=== PATIENT | female | born 2000 | race Caucasian/White ===

== ENCOUNTER 2022-09-12 08:50 | Outpatient (REF) | payer OTHER, SELFPAY ==
[2022-09-12 11:28] LABS: MANUAL DIFF FLAG NO
[2022-09-12 11:37] LABS: Basophils Percent Auto 0.5 % (0-2); Eosinophils Absolute Auto 0.2 X10*3/uL (0.0-0.4); Eosinophils Percent Auto 2.9 % (0-4); Hematocrit 40.7 % (37.0-47.0); Hemoglobin 13.3 g/dl (12.0-16.0); Imm Gran Abs Auto 0.02 X10*3/uL (0.00-0.03); Imm Gran Pct Auto 0.3 % (0.0-0.4); Lymphocytes Absolute Auto 2.7 X10*3/uL (1.2-4.9); Lymphocytes Percent Auto 35.7 % (20-40); Mean Corpuscular HGB Conc 32.7 g/dl (31.0-35.0); Mean Corpuscular Hemoglobin 28.1 pg (27.0-33.0); Mean Corpuscular Volume 85.9 fL (80.0-98.0); Monocytes Absolute Auto 0.7 X10*3/uL (0.1-1.2); Monocytes Percent Auto 8.9 % (2-11); Neutrophils Absolute Auto 3.9 x10*3/uL (2.0-8.3); Neutrophils Percent Auto 51.7 % (45-73); Platelet Count 430 X10*3/uL (160-400); Red Blood Count 4.74 X10*6/uL (4.20-5.50); Red Cell Distribution Width 12.6 % (11.0-16.0); White Blood Count 7.6 X10*3/uL (4.8-10.8)
[2022-09-12 14:11] LABS: Alanine Aminotransferase 15 U/L (0-31); Anion Gap 13 (12-20); Aspartate Amino Transferase 11 U/L (5-31); Blood Urea Nitrogen 10 mg/dL (9-16); Calcium 9.8 mg/dL (8.4-10.2); Carbon Dioxide 27 mmol/L (22-29); Chloride 101 mmol/L (96-108); Cholesterol 157 mg/dL; Estimated Glomerular Filt Rate > 60; Glucose Fasting 78 mg/dL (60-99); HDL Cholesterol 57 mg/dL; LDL Cholesterol Calculated 89 mg/dl; Potassium 4.1 mmol/L (3.3-5.1); Sodium 137 mmol/L (135-145); Triglycerides 55 mg/dL; Vitamin D 25-OH Total 21.5 ng/mL (>30)
== END 2022-09-12 08:51 | disposition home or self-care (01) ==
LOC: HO.HMGCLDS 08:50
PROVIDERS: PCP Internal Medicine; Visit Provider Internal Medicine
DX: Z00.01 Encounter for general adult medical examination with abnormal findings (principal); F41.1 Generalized anxiety disorder; Z86.2 Personal history of diseases of the blood and blood-forming organs and certain disorders involving the immune mechanism; Z86.39 Personal history of other endocrine, nutritional and metabolic disease
CPT/HCPCS: 36415; 80048; 80061; 82306; 84443; 84450; 84460; 85025

== ENCOUNTER 2023-08-27 12:18 | Outpatient (AMB) | payer OTHER, SELFPAY ==
--- NOTE | 2023-08-27 12:28 | MHC.PC.OV ---
Vital Signs 08/27/23 12:29 Height 5 ft 3 in Weight 129 lb 8 oz BMI 22.9 BP 120/86 Blood Pressure Location Rt brachial Position Sitting Pulse 74 Pulse Source Pulse Oximeter Pulse Oximetry (%) 98 Oxygen Delivery Method Room Air Intake Visit Reasons: Annual PE Intake Note: pt is here for annual exam Staff Research Scientist Required: No Accompanied by: Self / Same As Patient Allergies No Known Allergies Allergy (Verified 08/27/23 13:02) Medication List - Last Reconciled 08/27/23 by Sandra Rivera MD cholecalciferol (vitamin D3) 50 mcg PO DAILY hydroxyzine pamoate 50 mg PO TID PRN lorazepam 0.5 mg PO DAILY PRN Tobacco use date assessed: 08/27/23 Dental Screening Dental Screen Date: 08/27/23 Did you have a dental visit in the last 12 months?: Yes Did you have a dental problem in the last 6 months where you did not have access to dental care?: No Was dental information given to patient?: Patient has dentist HPI Annual PE HPI Details 23-year-old Lady here today for her physical exam. She has history of generalized anxiety disorder, takes hydroxyzine as needed and reserves lorazepam only for severe acute anxiety attacks. Still has not been able to see a psychiatrist and therapist in the area. Declines pelvic exam and cervical cancer screening . She states that she has been feeling well, but complains of severe menstrual cramps has regular monthly cycle peer [facility] Medical History Urinary retention with incomplete bladder emptying Family history of thyroid disorder Dysmenorrhea, unspecified Generalized anxiety disorder History of vitamin D deficiency Hx of iron deficiency anemia Surgical History No pertinent past surgical history Family History Father HTN (hypertension) Mother Hypothyroidism Hyperlipidemia Social History Housing: House Patient Tobacco Use Status: Never used Tobacco e-Cigarette/Vaping Use: Never Used Current occupational status: employed Current occupation: [employer] Current occupational exposures/hazards: No Cognitive needs: No Hearing needs: No Vision needs: Yes Female Reproductive History Menstrual Age of Menarche: 9 Duration of menses: 6-7 days Date of last menstrual period: 08/15/23 Questionnaire PHQ-9 Over the last 2 weeks, how often have you been bothered by any of the following problems? 1. Little interest or pleasure in doing things: several days 2. Feeling down, depressed, or hopeless: not at all 3. Trouble falling or staying asleep, or sleeping too much: several days 4. Feeling tired or having little energy: several days 5. Poor appetite or overeating: several days 6. Feeling bad about yourself - or that you are a failure or have let yourself or your family down: not at all 7. Trouble concentrating on things, such as reading the newspaper or watching television: not at all 8. Moving or speaking so slowly that other people could have noticed. Or the opposite - being so fidgety or restless that you have been moving around a lot more than usual: not at all 9. Thoughts that you would be better off or of hurting yourself in some way: not at all Total score: 4 Depression Screening Interpretation: Negative Depression Screening Done: Yes 53734 - PHQ-9 Billing: Yes Source: Developed by Drs. Bashir Skinner, Caitlin Pittman, Garrett Darden and colleagues, with an educational rosendo from [employer]. Thrive Questionnaire Date Thrive assessed: 08/27/23 I am a: Patient What is your living situation today?: I have a steady place to live Within the past 12 months, did the food you bought not last and you didn't have the money to get more?: Never true Within the past 12 months, did you worry whether your food would run out before you got money to buy more?: Never true Do you have trouble paying for medicines?: No Do you have trouble getting transportation to medical appointments?: No Do you have trouble paying your heating and electricity bill?: No Do you have trouble taking care of your child, family member or friend?: No Do you have trouble with day-to-day activities such as bathing, preparing meals, shopping, managing finances, etc.?: No Are you currently unemployed and looking for a job?: No Are you interested in more education?: No Please select the resources that you would like help with: None Currently or been in a relationship where the following occur: no concerns reported and I choose not to answer this question AUDIT C Alcohol Use Questionnaire (AUDIT-C) 1. How often do you have a drink containing alcohol?: Never 3. How often do you have six or more drinks on one occasion?: Never Total Score: 0 GARRY-7 AMB Questionnaire GARRY-7 Date GARRY - 7 assessed: 08/27/23 Feeling nervous, anxious, or on edge: 1 = Several days Not being able to stop or control worryin = Several days Worrying too much about different things: 1 = Several days Trouble relaxin = Several days Being so restless that it is hard to sit still: 1 = Several days Becoming easily annoyed or irritable: 0 = Not at all Feeling afraid as if something awful might happen: 0 = Not at all Total GARRY-7 score (0-4 normal; 5-9 mild; 10-14 moderate; 15-21 severe): 5 Source: Developed by Drs. Bashri Skinner, Caitlin Pittman, Garrett Darden and colleagues, with an educational rosendo from [employer]. GARRY-7 Assessment Billing GARRY-7 Assessment Tool: GARRY-7 Assessment 89999 Review of Systems Const Denies body aches, Denies fatigue, Denies fever(s), Denies headache(s) and Denies weakness Eyes Details: Goes to [facility] eye care for eye screening, has myopia ENT Denies dizziness, Denies headache(s), Denies nasal congestion, Denies nasal discharge and Denies sore throat Card Denies chest pain, Denies lightheadedness, Denies palpitations and Denies dyspnea Resp Denies chest congestion, Denies cough, Denies dyspnea and Denies wheezing GI Denies abdominal pain, Denies change in bowel habits and Denies heartburn Denies hematuria, Denies urinary frequency, Denies dysuria and Denies urinary urgency Musc Reports no additional complaints Skin/Breast Denies breast pain, Denies breast mass, Denies lesions and Denies rash Neuro Denies dizziness, Denies headache(s) and Denies weakness Psych Reports as per HPI, Denies abnormal sleep pattern, Denies change in appetite and Denies difficulty concentrating Endo Denies fatigue, Denies polydipsia, Denies polyuria and Denies palpitations Reji/Lymph Denies easy bleeding and Denies easy bruising Aller/Immun Denies seasonal rhinorrhea and Denies wheezing Physical exam (Primary Care) Vital Signs: Last Vital Signs Pulse 74 08/27/23 12:29 BP 120/86 08/27/23 12:29 Pulse Ox 98 08/27/23 12:29 Oxygen Delivery Method Room Air 08/27/23 12:29 BMI result Body Mass Index 22.9 Tobacco/Smoking Status: Tobacco use Status Tobacco use date assessed 08/27/23 08/27/23 12:35 Patient Tobacco Use Status Never used Tobacco 08/27/23 12:28 e-Cigarette/Vaping Use Never Used 08/27/23 12:28 PHQ-9: PHQ-9 Score PHQ-9: Total score 5 08/27/23 13:03 Depression Screening Interpretation: Negative Thrive Assessment: Date of Thrive Assessment Date Thrive assessed 08/27/23 08/27/23 12:35 Currently or been in a relationship where the following occur: no concerns reported and I choose not to answer this question Const General: comfortable, no acute distress, alert and awake Nutritional Appearance: average body habitus Orientation/consciousness: patient oriented x3 HENMT Head: Yes normocephalic Ears: TM's normal bilaterally and EAC's normal General nose exam: Normal external nose present Face and sinus: Yes face symmetric Mouth: Normal oral and palatal mucosa present, oropharynx normal and moist mucous membranes Eyes General: appearance normal, both eyes and all related structures Neck Neck: Yes normal visual inspection, Yes full ROM, Yes no lymphadenopathy and Yes supple Thyroid: Thyroid normal Chest Chest palpation & inspection: normal inspection of the chest Breast/axilla palpation: normal palpation of the breasts Resp Effort & Inspection: normal respiratory effort and able to speak in complete sentences Auscultation: clear to auscultation bilaterally Cardio Rate: regular rate Rhythm: regular rhythm Heart sounds: S1 normal heart sound present and S2 normal heart sound present GI Palpation (GI): Soft to palpation, nontender, no guarding and no masses Auscultation: normal bowel sounds General: Yes no CVA tenderness and Yes deferred (pt declined exam) Back/Spine/Pelvis Back: no CVA tenderness and No back tenderness Skin General skin exam: no rashes or lesions noted Neuro General: patient oriented x3, gait normal, moves all extremities, Normal light touch and pain sensation, no focal motor deficits and CN's II-XI intact bilaterally Gait exam (Neuro): Normal gait present Extrem General: Yes full ROM, Yes no joint enlargement, Yes no clubbing, cyanosis or edema, Yes no calf tenderness and Yes normal gait Psych Appearance: grossly normal and well kempt Mental Status: mental status grossly normal Speech and movement: Normal speech and movement present Affect: Anxious affect present Attitude: cooperative Thought process: Normal thought process present Assessment and Plan Assessment & Plan (1) Annual visit for general adult medical examination with abnormal findings: Code(s): Z00.01 - Encounter for general adult medical examination with abnormal findings Plan: Will check appropriate labs. Recommended dental visit every 6 months and regular eye exams, at least every 2 years currently up-to-date. Advised to do regular breast exams to check for any mass. Declined pelvic exam and cervical cancer screening. Start screening mammogram at age 38. She is up-to-date with her Tdap, has had COVID vaccinations and flu shots in the past but does not want to get further vaccines. (2) Generalized anxiety disorder: Code(s): F41.1 - Generalized anxiety disorder Plan: Still waiting for appointment to see therapist and psychiatrist. Meantime refill sent for her hydroxyzine and lorazepam to take as directed (3) History of vitamin D deficiency: Code(s): Z86.39 - Personal history of other endocrine, nutritional and metabolic disease Plan: Will repeat another vitamin-D level (4) Dysmenorrhea, unspecified: Code(s): N94.6 - Dysmenorrhea, unspecified Plan: Referred for pelvic ultrasound, but patient refusing transvaginal exam (5) Hx of iron deficiency anemia: Code(s): Z86.2 - Personal history of diseases of the blood and blood-forming organs and certain disorders involving the immune mechanism Plan: CBC ordered Orders: Orders Complete Blood Count Auto Diff 08/27/23 Z86.39 - Personal history of other endocrine, nutritional and metabolic disease, Z86.2 - Personal history of diseases of the blood and blood-forming organs and certain disorders involving the immune mechanism, F41.1 - Generalized anxiety disorder, Z00.01 - Encounter for general adult medical examination with abnormal findings Vitamin D 25-OH Total 08/27/23 Z86.39 - Personal history of other endocrine, nutritional and metabolic disease, Z86.2 - Personal history of diseases of the blood and blood-forming organs and certain disorders involving the immune mechanism, F41.1 - Generalized anxiety disorder, Z00.01 - Encounter for general adult medical examination with abnormal findings Glucose Fasting 08/27/23 Z86.39 - Personal history of other endocrine, nutritional and metabolic disease, Z86.2 - Personal history of diseases of the blood and blood-forming organs and certain disorders involving the immune mechanism, F41.1 - Generalized anxiety disorder, Z00.01 - Encounter for general adult medical examination with abnormal findings TSH reflex Free T4 08/27/23 Z83.49 - Family history of other endocrine, nutritional and metabolic diseases Medications: Refilled lorazepam 0.5 mg PO DAILY PRN 30 tabs 0RF severe anxiety/panic attacks F41.1 - Generalized anxiety disorder hydroxyzine pamoate 50 mg PO TID PRN 90 caps 0RF ACUTE ANXIETY ATTACKS ONLY F41.1 - Generalized anxiety disorder Review Declined Pap Smear: 08/27/23 Flu Vaccine not done: patient reason Coding Level of Care Code Est Pt Prev Care 18-39y(98182) Diagnoses Annual visit for general adult medical examination with abnormal findings Z00.01 Generalized anxiety disorder F41.1 History of vitamin D deficiency Z86.39 Dysmenorrhea, unspecified N94.6 Hx of iron deficiency anemia Z86.2 Additional Codes GARRY-7 Assessment Billing - GARRY-7 Assessment Tool: GARRY-7 Assessment [id number] ([id number])
[2023-08-27 12:29] VITALS: BP 120/86; PULSE 74; O2SAT 98; BMI 22.9
== END 2023-08-27 13:44 | disposition home or self-care (01) ==
PROVIDERS: Visit Provider Internal Medicine
DX: Z00.00 Encounter for general adult medical examination without abnormal findings (principal); F41.1 Generalized anxiety disorder; Z86.39 Personal history of other endocrine, nutritional and metabolic disease; N94.6 Dysmenorrhea, unspecified; Z86.2 Personal history of diseases of the blood and blood-forming organs and certain disorders involving the immune mechanism
CPT/HCPCS: 99395

== ENCOUNTER 2023-10-16 08:10 | Outpatient (REF) | payer OTHER, SELFPAY ==
[2023-10-16 11:48] LABS: MANUAL DIFF FLAG NO
[2023-10-16 11:55] LABS: Basophils Percent Auto 0.3 % (0-2); Eosinophils Absolute Auto 0.2 X10*3/uL (0.0-0.4); Eosinophils Percent Auto 3.5 % (0-4); Hematocrit 41.4 % (37.0-47.0); Hemoglobin 13.5 g/dl (12.0-16.0); Imm Gran Abs Auto 0.01 X10*3/uL (0.00-0.03); Imm Gran Pct Auto 0.2 % (0.0-0.4); Lymphocytes Absolute Auto 2.4 X10*3/uL (1.2-4.9); Lymphocytes Percent Auto 41.2 % (20-40); Mean Corpuscular HGB Conc 32.6 g/dl (31.0-35.0); Mean Corpuscular Hemoglobin 28.1 pg (27.0-33.0); Mean Corpuscular Volume 86.3 fL (80.0-98.0); Mean Platelet Volume 11.2 fL (9.4-12.3); Monocytes Absolute Auto 0.5 X10*3/uL (0.1-1.2); Monocytes Percent Auto 9.2 % (2-11); Neutrophils Absolute Auto 2.6 x10*3/uL (2.0-8.3); Neutrophils Percent Auto 45.6 % (45-73); Platelet Count 362 X10*3/uL (160-400); Red Cell Distribution Width 12.9 % (11.0-16.0); White Blood Count 5.8 X10*3/uL (4.8-10.8)
[2023-10-16 12:11] LABS: Glucose Fasting 75 mg/dL (60-99)
[2023-10-16 12:41] LABS: TSH reflex Free T4 1.39 uIU/mL (0.32-4.0); Vitamin D 25-OH Total 51.9 ng/mL (>30)
== END 2023-10-16 08:11 | disposition home or self-care (01) ==
LOC: HO.HMGCLDS 08:10
PROVIDERS: PCP Internal Medicine; Visit Provider Internal Medicine
DX: Z00.01 Encounter for general adult medical examination with abnormal findings (principal); F41.1 Generalized anxiety disorder; Z86.39 Personal history of other endocrine, nutritional and metabolic disease; Z86.2 Personal history of diseases of the blood and blood-forming organs and certain disorders involving the immune mechanism; Z83.49 Family history of other endocrine, nutritional and metabolic diseases
CPT/HCPCS: 36415; 82306; 82947; 84443; 85025

== ENCOUNTER 2023-10-23 12:44 | Outpatient (REF) | payer OTHER, SELFPAY ==
--- NOTE | ~2023-10-23 | US_ITS ---
EXAMINATION: US PELVIS CLINICAL INFORMATION: Dysmenorrhea. COMPARISON: None available. TECHNIQUE: Transabdominal imaging of pelvis is performed. Patient refused transvaginal ultrasound. FINDINGS: Uterus: The uterus is anteverted and measures 9.2 x 5.0 x 3 5.3 cm. The double wall endometrial thickness is 0.92 cm. The uterus is smooth in contour and has normal myometrial echogenicity. No visible fibroid. Adnexa: There are bilateral adnexal cystic and solid mass is unable to differentiate from the ovaries. As per the patient signifies or [address] abdomen pelvis which was not performed at this institution. There is no small to moderate free fluid in the cul-de-sac. US/US pelvic complete IMPRESSION: Unremarkable uterus. Bilateral adnexal cystic and solid masses. Unable to separate ovary on transabdominal ultrasound. Transvaginal scan was reviewed. If patient has clinical pain and bleeding further evaluation can be performed with MRI with and without contrast. Small to moderate amount of free fluid in the pelvis.
== END 2023-10-23 12:45 | disposition home or self-care (01) ==
LOC: HO.HMGCX 12:44
PROVIDERS: PCP Internal Medicine; Visit Provider Internal Medicine
DX: N94.6 Dysmenorrhea, unspecified (principal)
CPT/HCPCS: 76856

== ENCOUNTER 2024-02-04 09:11 | Outpatient (AMB) | payer OTHER, SELFPAY ==
[2024-02-04 09:23] VITALS: BP 112/70; PULSE 88; TEMP 36.6; O2SAT 99
--- NOTE | 2024-02-04 09:23 | AM.OFFWIN_ITS ---
Intake Vital Signs 02/04/24 09:23 Height 5 ft 3 in BP 112/70 Blood Pressure Location Rt brachial Position Sitting Pulse 88 Pulse Source Pulse Oximeter Temp 97.8 F Temp Source Temporal Artery Scan Pulse Oximetry (%) 99 Intake Visit Reasons: EST/right side sharp hip pain (lobby) Intake Note: pt is here for right side sharp pain denies injury Patient Tobacco Use Status: Never used Tobacco Allergies No Known Allergies Allergy (Verified 02/04/24 09:57) Medication List - Last Reconciled 02/04/24 by Jose Gold MD cholecalciferol (vitamin D3) 50 mcg PO DAILY hydroxyzine pamoate 50 mg PO TID PRN lorazepam 0.5 mg PO DAILY PRN Do you need a note to return to daycare/school/sports/work: Yes HPI EST/right side sharp hip pain (lobby) HPI Details 23 yr old female presents to the office for a sick visit. Pt is reporting sharp pain over right hip for the past 7 days. Pain is present all the time, unrelated to urination, bowel movements or eating. Radiating to the base of the right leg. Able to walk with no difficulty. No change in gait. [facility], [facility] Medical History Adnexal mass Urinary retention with incomplete bladder emptying Family history of thyroid disorder Dysmenorrhea, unspecified Generalized anxiety disorder History of vitamin D deficiency Hx of iron deficiency anemia Surgical History No pertinent past surgical history Family History Father HTN (hypertension) Mother Hypothyroidism Hyperlipidemia Social History Housing: House Patient Tobacco Use Status: Never used Tobacco e-Cigarette/Vaping Use: Never Used Current occupational status: employed Current occupation: [employer] Current occupational exposures/hazards: No Cognitive needs: No Hearing needs: No Vision needs: Yes Female Reproductive History Menstrual Age of Menarche: 9 Physical Exam Vital Signs: Last Vital Signs Temp 97.8 F 02/04/24 09:23 Pulse 88 02/04/24 09:23 BP 112/70 05/13/24 09:23 Pulse Ox 99 02/04/24 09:23 Const General: cooperative and healthy appearing Nutritional Appearance: well nourished Orientation/consciousness: patient oriented x3 Limitations: no limitations HEENT Head: Yes normal to inspection Eyes General: appearance normal, both eyes and all related structures Neck Neck: Yes normal visual inspection Chest Chest palpation & inspection: normal palpation of entire chest wall Resp Effort & Inspection: normal respiratory effort GI Other: Examination done with a female director medical affairs in the room. Abd: Tenderness over the anterior iliac spine. ROM: Right hip: Full flexion, extention, IR and ER. Inspection: Yes normal to inspection Neuro General: patient oriented x3 Assessment & Plan Assessment & Plan (1) Hip pain: Code(s): M25.559 - Pain in unspecified hip Plan: X ray images personally revd by me. Pt has an MRI of the abdomen scheduled later this week for work up of an ovarian lesion. Encouraged her to keep the appt. X- ray images were unremarkable. Orders: Orders Complete Blood Count no Diff Today M25.559 - Pain in unspecified hip C Reactive Protein Today M25.559 - Pain in unspecified hip Basic Metabolic Panel Today M25.559 - Pain in unspecified hip Erythrocyte Sedimentation Rate Today M25.559 - Pain in unspecified hip Liver Panel Today M25.559 - Pain in unspecified hip Thyroid Stimulating Hormone Today M25.559 - Pain in unspecified hip XR hip RT w PEL1V Today M25.551 - Pain in right hip Coding Level of Care Code Est Pt Level 4 (50631) Diagnoses Hip pain M25.559
== END 2024-02-04 10:23 | disposition home or self-care (01) ==
PROVIDERS: PCP Internal Medicine; Visit Provider Internal Medicine
DX: M25.559 Pain in unspecified hip (principal)
CPT/HCPCS: 99214

== ENCOUNTER 2024-02-04 09:54 | Outpatient (REF) | payer OTHER, SELFPAY ==
--- NOTE | ~2024-02-04 | XR_ITS ---
EXAMINATION: XR HIP, RIGHT CLINICAL INFORMATION: Right hip pain. COMPARISON: None available. TECHNIQUE: Two views of the right hip. FINDINGS: Alignment is anatomic. Hip joint space is maintained. No displaced fracture. Soft tissues are unremarkable. The sacrum is partially obscured by overlying bowel contents. Sacroiliac joints and pubic symphysis are intact. The hip joints appear symmetric on the AP view. XR/XR hip RT w PEL1V IMPRESSION: No acute abnormality.
== END 2024-02-04 09:55 | disposition home or self-care (01) ==
LOC: HO.HMGCX 09:54
PROVIDERS: PCP Internal Medicine; Visit Provider Internal Medicine
DX: M25.551 Pain in right hip (principal)
CPT/HCPCS: 73502

== ENCOUNTER 2024-08-28 13:55 | Outpatient (AMB) | payer OTHER, SELFPAY ==
--- NOTE | 2024-08-28 14:31 | MHC.PC.OV ---
Vital Signs 08/28/24 14:39 Height 5 ft 3 in Weight 121 lb BMI 21.4 BP 114/70 Blood Pressure Location Rt brachial Position Sitting Pulse 86 Pulse Source Pulse Oximeter Pulse Oximetry (%) 100 Oxygen Delivery Method Room Air Intake Visit Reasons: Annual PE Intake Note: Pt is here today for her PE Allergies No Known Allergies Allergy (Verified 08/31/24 01:42) Medication List - Last Reconciled 08/31/24 by Sandra Rivera MD cholecalciferol (vitamin D3) 50 mcg PO DAILY hydroxyzine HCl 50 mg PO DAILY PRN lorazepam 0.5 mg PO DAILY PRN Tobacco use date assessed: 08/28/24 Dental Screening Dental Screen Date: 08/28/24 Did you have a dental visit in the last 12 months?: Yes Did you have a dental problem in the last 6 months where you did not have access to dental care?: No Was dental information given to patient?: Patient has dentist HPI Annual PE HPI Details The patient is a 24-year-old female, heretoday for her physical examination. She has been diagnosed with Stage IV Endometriosis, which was confirmed following a pelvic ultrasound and MRI and laparotomy, done at [facility]. She underwent surgery on June 03 at [facility], but not all endometrial tissue could be removed. Subsequent hormone therapy with Lupron has resulted in severe side effects, including nerve-related symptoms, loss of strength, dizziness, and weakness. Prior to starting Lupron, the patient experienced predictable severe pain associated with her menstrual cycle, but post-treatment, the pain has become inconsistent and unpredictable. She reports a significant emotional and physical toll, with symptoms exceeding expectations from the initial treatment discussion. Despite prior intervention, she states that her symptoms persist, affecting her quality of life and daily functioning. Works at [employer], with concerns about job security and sick time. [facility] Medical History (Updated 08/28/24 @ 15:23 by Sandra Rivera MD) Endometriosis determined by laparoscopy Adnexal mass Urinary retention with incomplete bladder emptying Family history of thyroid disorder Dysmenorrhea, unspecified Generalized anxiety disorder History of vitamin D deficiency Hx of iron deficiency anemia Surgical History (Updated 08/31/24 @ 01:55 by Sandra Rivera MD) Hx of laparoscopy Family History Father HTN (hypertension) Mother Hypothyroidism Hyperlipidemia Social History Housing: House Patient Tobacco Use Status: Never used Tobacco e-Cigarette/Vaping Use: Never Used Current occupational status: employed Current occupation: [employer] Current occupational exposures/hazards: No Cognitive needs: No Hearing needs: No Vision needs: Yes Female Reproductive History Menstrual Age of Menarche: 9 Date of last pap smear: 06/03/24 (Done by [facility] urogynecology with Dr. Melinda Pope) Questionnaire PHQ-9 Over the last 2 weeks, how often have you been bothered by any of the following problems? 1. Little interest or pleasure in doing things: not at all 2. Feeling down, depressed, or hopeless: not at all 3. Trouble falling or staying asleep, or sleeping too much: not at all 4. Feeling tired or having little energy: several days 5. Poor appetite or overeating: not at all 6. Feeling bad about yourself - or that you are a failure or have let yourself or your family down: not at all 7. Trouble concentrating on things, such as reading the newspaper or watching television: not at all 8. Moving or speaking so slowly that other people could have noticed. Or the opposite - being so fidgety or restless that you have been moving around a lot more than usual: not at all 9. Thoughts that you would be better off or of hurting yourself in some way: not at all Total score: 1 Depression Screening Interpretation: Negative Depression Screening Done: Yes 95544 - PHQ-9 Billing: Yes Source: Developed by Drs. Bashir Skinner, Caitlin Pittman, Garrett Darden and colleagues, with an educational rosendo from [employer]. Thrive Questionnaire Date Thrive assessed: 08/28/24 I am a: Patient What is your living situation today?: I have a steady place to live Within the past 12 months, did the food you bought not last and you didn't have the money to get more?: Never true Within the past 12 months, did you worry whether your food would run out before you got money to buy more?: Never true Do you have trouble paying for medicines?: No Do you have trouble getting transportation to medical appointments?: No Do you have trouble paying your heating and electricity bill?: No Do you have trouble taking care of your child, family member or friend?: No Do you have trouble with day-to-day activities such as bathing, preparing meals, shopping, managing finances, etc.?: No Are you currently unemployed and looking for a job?: No Are you interested in more education?: No Please select the resources that you would like help with: None Currently or been in a relationship where the following occur: No concerns reported THRIVE Score: 0 AUDIT C Alcohol Use Questionnaire (AUDIT-C) 1. How often do you have a drink containing alcohol?: Never 3. How often do you have six or more drinks on one occasion?: Never Total Score: 0 GARRY-7 AMB Questionnaire GARRY-7 Date GARRY - 7 assessed: 08/28/24 Feeling nervous, anxious, or on edge: 0 = Not at all Not being able to stop or control worryin = Not at all Worrying too much about different things: 0 = Not at all Trouble relaxin = Not at all Being so restless that it is hard to sit still: 0 = Not at all Becoming easily annoyed or irritable: 0 = Not at all Feeling afraid as if something awful might happen: 0 = Not at all Total GARRY-7 score (0-4 normal; 5-9 mild; 10-14 moderate; 15-21 severe): 0 Source: Developed by Drs. Bashir Skinner, Caitlin Pittman, Garrett Darden and colleagues, with an educational rosendo from [employer]. GARRY-7 Assessment Billing GARRY-7 Assessment Tool: GARRY-7 Assessment 28295 Review of Systems Const Denies fatigue, Denies fever(s), Denies headache(s) and Denies weakness Eyes Details: Goes to [facility] for her yearly eye exams ENT Details: dental prophylaxis every 6 months Denies dizziness, Denies headache(s), Denies nasal congestion, Denies nasal discharge and Denies sore throat Card Denies chest pain, Denies lightheadedness, Denies palpitations and Denies dyspnea Resp Denies chest congestion, Denies cough, Denies dyspnea and Denies wheezing GI Denies change in bowel habits and Denies heartburn Reports abnormal menses, Denies hematuria, Denies urinary frequency, Denies dysuria and Denies urinary urgency Musc Reports no additional complaints Skin/Breast Denies breast pain, Denies breast mass, Denies lesions and Denies rash Neuro Denies dizziness, Denies headache(s) and Denies weakness Psych Denies abnormal sleep pattern, Denies change in appetite and Denies difficulty concentrating Endo Denies fatigue, Denies polydipsia, Denies polyuria and Denies palpitations Reji/Lymph Denies easy bleeding and Denies easy bruising Aller/Immun Denies seasonal rhinorrhea and Denies wheezing Physical exam (Primary Care) Vital Signs: Last Vital Signs Pulse 86 08/28/24 14:39 BP 114/70 08/28/24 14:39 Pulse Ox 100 08/28/24 14:39 Oxygen Delivery Method Room Air 08/28/24 14:39 BMI result Body Mass Index 21.4 Tobacco/Smoking Status: Tobacco use Status Tobacco use date assessed 08/28/24 08/28/24 14:33 Patient Tobacco Use Status Never used Tobacco 08/28/24 14:31 e-Cigarette/Vaping Use Never Used 08/28/24 14:31 PHQ-9: PHQ-9 Score PHQ-9: Total score 1 08/28/24 15:25 Depression Screening Interpretation: Negative Thrive Assessment: Date of Thrive Assessment Date Thrive assessed 08/28/24 08/28/24 14:31 Currently or been in a relationship where the following occur: No concerns reported Advance Care Planning discussion: Completed/Scanned Date of discussion: 08/28/24 Who was present: Patient and mother Forms completed: Health Care Proxy Time spent: 16-45 minutes Actual minutes spent: 2 Const Other: Accompanied by mother on this visit General: comfortable, no acute distress, alert and awake Nutritional Appearance: average body habitus Orientation/consciousness: patient oriented x3 HENMT Head: Yes normocephalic Ears: TM's normal bilaterally and EAC's normal General nose exam: Normal external nose present Face and sinus: Yes face symmetric Mouth: Normal oral and palatal mucosa present, oropharynx normal and moist mucous membranes Eyes General: appearance normal, both eyes and all related structures Neck Neck: Yes normal visual inspection, Yes full ROM, Yes no lymphadenopathy and Yes supple Thyroid: Thyroid normal Chest Other: Patient declined exam states that she was already checked by her OB Resp Effort & Inspection: normal respiratory effort and able to speak in complete sentences Auscultation: clear to auscultation bilaterally Cardio Rate: regular rate Rhythm: regular rhythm Heart sounds: S1 normal heart sound present and S2 normal heart sound present GI Palpation (GI): Soft to palpation, Tenderness to palpation present (GI) (Diffuse tenderness), no guarding and no masses Auscultation: normal bowel sounds General: Yes no CVA tenderness and Yes deferred (pt declined exam) Back/Spine/Pelvis Back: no CVA tenderness and No back tenderness Skin General skin exam: no rashes or lesions noted Neuro General: patient oriented x3, gait normal, moves all extremities, Normal light touch and pain sensation, no focal motor deficits and CN's II-XI intact bilaterally Gait exam (Neuro): Normal gait present Extrem General: Yes full ROM, Yes no joint enlargement, Yes no clubbing, cyanosis or edema, Yes no calf tenderness and Yes normal gait Psych Appearance: grossly normal and well kempt Mental Status: mental status grossly normal Speech and movement: Normal speech and movement present Attitude: cooperative Thought process: Normal thought process present Coding Level of Care Code Est Pt Prev Care 18-39y(78268) Diagnoses Annual visit for general adult medical examination with abnormal findings Z00. Endometriosis determined by laparoscopy N80.9 Hx of iron deficiency anemia Z86.2 History of vitamin D deficiency Z86.39 Generalized anxiety disorder F41.1 Encounter for counseling regarding advance directives Z71.89 Additional Codes PHQ-9 - 67328 - PHQ-9 Billing: Yes ([id number]) GARRY-7 Assessment Billing - GARRY-7 Assessment Tool: GARRY-7 Assessment 40274 ([id number]) Vital Signs *Quality* - Advance Care Planning discussion: Completed/Scanned ([id number]) Vital Signs *Quality* - Time spent: 16-45 minutes ([id number]) Assessment & Plan Assessment & Plan (1) Annual visit for general adult medical examination with abnormal findings: Code(s): Z00.01 - Encounter for general adult medical examination with abnormal findings (2) Endometriosis determined by laparoscopy: Code(s): N80.9 - Endometriosis, unspecified Category: Medical (3) Hx of iron deficiency anemia: Code(s): Z86.2 - Personal history of diseases of the blood and blood-forming organs and certain disorders involving the immune mechanism Category: Medical (4) History of vitamin D deficiency: Code(s): Z86.39 - Personal history of other endocrine, nutritional and metabolic disease Category: Medical (5) Generalized anxiety disorder: Code(s): F41.1 - Generalized anxiety disorder Category: Medical (6) Encounter for counseling regarding advance directives: Code(s): Z71.89 - Other specified counseling Plan: Initiated the conversation about Advanced Directives. Advanced Directives help patients prepare for current and future decisions about their medical treatment and place of care. Discussed with patient that it is a process where a patients current condition and prognosis are reviewed, their wishes for information regarding their illness are elicited, and likely medical dilemmas are presented and options discussed. Healthcare proxy form completed today. The form can be amended as needed, reviewed yearly and make changes as needed Plan - Continued monitoring and management of Stage IV Endometriosis with hormonal therapy discussion. and consideration of alternatives to Lupron due to severe side effects will be discussed with her OBGYN at [facility]. -has hx of Anemia, to be evaluated with upcoming blood work; pending results to guide further management. - Follow-up scheduled with LOOPING MACHINE OPERATOR for comprehensive management of endometriosis symptoms and adjustment of hormonal treatment. - Discuss potential use of higher content control with LOOPING MACHINE OPERATOR as an alternative management option. - Safety measures at work and consideration for FMLA to manage intermittent medical leave due to chronic pain. -Up-to-date with her cervical cancer screening, done 06/03/2024 at [facility] O[facility] - up-to-date with her routine eye exam, has had COVID vaccines in the past as well as flu shots but does not want to get any COVID booster or flu vaccine on today's visit, up-to-date with her Tdap - has been having frequent anxiety attacks brought about by her current medical issues, prescription sent for hydroxyzine, to take at as needed for acute anxiety attacks mainly at night, and also given a prescription for lorazepam to take as needed only for severe anxiety attacks not controlled with hydroxyzine. patient counseled that these medications are habit-forming and not to be taken on a regular basis. Declines referral for counseling Patient was informed and verbally consented to the use of an ambient scribe for clinic note documentation during this visit. Orders: Orders Complete Blood Count Auto Diff 08/28/24 F41.1 - Generalized anxiety disorder, N80.9 - Endometriosis, unspecified, Z00.01 - Encounter for general adult medical examination with abnormal findings, Z71.89 - Other specified counseling, Z86.2 - Personal history of diseases of the blood and blood-forming organs and certain disorders involving the immune mechanism, Z86.39 - Personal history of other endocrine, nutritional and metabolic disease Basic Metabolic Panel Fasting 08/28/24 F41.1 - Generalized anxiety disorder, N80.9 - Endometriosis, unspecified, Z00.01 - Encounter for general adult medical examination with abnormal findings, Z71.89 - Other specified counseling, Z86.2 - Personal history of diseases of the blood and blood-forming organs and certain disorders involving the immune mechanism, Z86.39 - Personal history of other endocrine, nutritional and metabolic disease Lipid Panel 08/28/24 F41.1 - Generalized anxiety disorder, N80.9 - Endometriosis, unspecified, Z00.01 - Encounter for general adult medical examination with abnormal findings, Z71.89 - Other specified counseling, Z86.2 - Personal history of diseases of the blood and blood-forming organs and certain disorders involving the immune mechanism, Z86.39 - Personal history of other endocrine, nutritional and metabolic disease TSH reflex Free T4 08/28/24 F41.1 - Generalized anxiety disorder, N80.9 - Endometriosis, unspecified, Z00.01 - Encounter for general adult medical examination with abnormal findings, Z71.89 - Other specified counseling, Z86.2 - Personal history of diseases of the blood and blood-forming organs and certain disorders involving the immune mechanism, Z86.39 - Personal history of other endocrine, nutritional and metabolic disease Vitamin D 25-OH Total 08/28/24 F41.1 - Generalized anxiety disorder, N80.9 - Endometriosis, unspecified, Z00.01 - Encounter for general adult medical examination with abnormal findings, Z71.89 - Other specified counseling, Z86.2 - Personal history of diseases of the blood and blood-forming organs and certain disorders involving the immune mechanism, Z86.39 - Personal history of other endocrine, nutritional and metabolic disease Medications: New hydroxyzine HCl 50 mg PO DAILY PRN 30 tabs 3RF anxiety Refilled lorazepam 0.5 mg PO DAILY PRN 30 tabs 0RF severe anxiety/panic attacks F41.1 - Generalized anxiety disorder Discontinued hydroxyzine pamoate Discontinued Reason: Duplicate 50 mg PO TID PRN 90 caps 0RF ACUTE ANXIETY ATTACKS ONLY F41.1 - Generalized anxiety disorder
[2024-08-28 14:39] VITALS: BP 114/70; PULSE 86; O2SAT 100; BMI 21.4
--- OUTSIDE RECORDS SUMMARY | 2024-09-03 02:57 | XMS_ITS | Continuity of Care Document ---
Author Organization [facility] y [address], [address] [place] [address]- Care Team Providers Care Fisheries Technical Officer Name Role Phone Nicole DIXON, Sandra Torrez Primary Care Physician Encounter [facility] [id number] Date(s): 07/24/24 - 08/23/[address] [place], [place] [address] Attending Physician: Lianne Snowden Admitting Physician: Lianne Snowden Referring Physician: Admtr ArCesar Encounter Type: Triage Allergies, Adverse Reactions, Alerts No Known Allergies Immunizations Given and Recorded Vaccine Date Status Refusal Reason influenza virus vaccine, inactivated 08/11/22 Stephen rded influenza virus vaccine, inactivated 07/17/21 Stephen rded influenza virus vaccine, inactivated 07/23/20 Stephen rded influenza virus vaccine, inactivated 07/05/19 Stephen rded influenza virus vaccine, inactivated 07/27/18 Stephen rded influenza virus vaccine, inactivated 07/13/17 Stephen rded SARS-CoV-2 (COVID-19) mRNA BNT-162b2 vac 10/19/21 Recorded SARS-CoV-2 (COVID-19) mRNA BNT-162b2 vac 02/05/21 Recorded SARS-CoV-2 (COVID-19) mRNA BNT-162b2 vac 01/13/21 Recorded tetanus/diphtheria/pertussis, acel(Tdap) 10/15/20 Recorded Medications acetaminophen 500 mg oral tablet 2 tablet = 1,000 mg, By Mouth, Every 6 hours, PRN as needed for pain or fever, Maintenance, 05/30/24 3:02:00 PM EDT Start Date: 05/30/24 Status: Ordered Repeat number: 1 asthma clear (natural asthma relief) asthma clear (natural asthma relief), 2 capsules, By Mouth, Daily, Refills 0, Maintenance, 10/23/13 3:28:01 PM EST, Compound Start Date: 10/23/13 Status: Ordered Repeat number: 1 gabapentin 100 mg oral capsule 200 mg, 2, capsule, By Mouth, 3 times a day, # 180 capsule, Refills 3, Tot. Refills 3, Maintenance,07/15/24 12:53:00 PM EDT, Route to Pharmacy Electronically, [id number], Partial fill upon patient request if the prescription is for a schedule II opioid drug., 163, cm, 06/20/24 14:46:00 EDT, Height, 57.6, kg, 07/04/24 10:53:00 EDT, Dry Weight Start Date: 07/15/24 Status: Ordered Quantity: 180.0 Unit: capsule Repeat number: 4 leuprolide 11.25 mg/3 months intramuscular kit = 11.25 mg, Intramuscular, Every 3 months, # 1 kit, 3 Refills, Maintenance, 07/30/24 9:10:00 AM EST,[facility], Partial fill upon patient request if the prescription is for a schedule II opioid drug., 163, cm, 07/24/24 9:39:00 EDT, Height, 56.9, kg, 07/28/24 8:45:00 EST, Dry Weight Start Date: 07/30/24 Status: Ordered Quantity: 1.0 Unit: kit Repeat number: 4 lidocaine 1.8% topical film 1 patch, Topically, Daily, leave on up to 12 hours, # 30 each, 0 Refills, Maintenance, 06/20/24 2:42:00 PM EDT, Film, [id number], Partial fill upon patient request if the prescription is for a schedule II opioid drug., 1 patch Topically Daily,x14 days,Instr:leave on up to 12 hours,163, cm, 06/20/24 10:46:00 EDT, Height, 56, kg, 06/20/24 10:46:00 EDT, Dry Weight Start Date: 06/20/24 Stop Date: 07/04/24 Status: Ordered Quantity: 30.0 Unit: each Repeat number: 1 lidocaine 5% topical film 1 patch, Topically, Daily, PRN Pain , Mild, remove after 12 hours, # 30 patch, 2 Refills, Maintenance, 07/15/24 12:52:00 PM EDT, Film, [id number], Partial fill upon patient request if the prescription is for a schedule II opioid drug., 1 patch Topically Daily,PRN:Pain , Mild,Instr:remove after 12 hours, 163, cm, 06/20/24 14:46:00 EDT, Height, 57.6, kg, 07/04/24 10:53:00 EDT, DryWeight Start Date: 07/15/24 Status: Ordered Quantity: 30.0 Unit: patch Repeat number: 3 LORazepam 0.5 mg oral tablet 1 tablet = 0.5 mg, By Mouth, Daily, PRN as needed for anxiety, Maintenance, 05/30/24 3:03:00 PM EDT Start Date: 05/30/24 Status: Ordered Repeat number: 1 MiraLax oral powder for reconstitution = 17 Gm, By Mouth, Daily, # 30 each, 0 Refills, Maintenance, 06/23/24 6:16:00 PM EDT, REC Powder, [id number], Partial fill upon patient request if the prescription is for a schedule II opioid drug., 17 Gm By Mouth Daily, 163, cm, 06/20/24 14:46:00 EDT, Height, 56, kg, 06/20/24 14:46:00 EDT, Dry Weight Start Date: 06/23/24 Status: Ordered Quantity: 30.0 Unit: each Repeat number: 1 Multivitamin 0 Refills, Maintenance, 07/24/24 9:53:00 AM EDT, Partial fill upon patient request if the prescription is for a schedule II opioid drug. Start Date: 07/24/24 Status: Ordered Repeat number: 1 norethindrone 0.35 mg oral tablet 3 tablet = 1.05 mg, By Mouth, Daily, # 270 tablet, 0 Refills, Maintenance, 07/28/24 9:27:00 AM EST, [facility]/pharmacy #[id number], Partial fill upon patient request if the prescription is for a schedule II opioid drug., 163, cm, 07/24/24 9:39:00 EDT, Height, 56.9, kg, 07/28/24 8:45:00 EST, Dry Weight Start Date: 07/28/24 Stop Date: 10/26/24 Status: Ordered Quantity: 270.0 Unit: tablet Repeat number: 1 oxyCODONE 5 mg oral tablet 5 mg, 1, tablet, By Mouth, Every 6 hours, PRN, for 30 days, # 30 tablet, Refills 0, Tot. Refills 0,Acute 08/27/24 9:28:00 AM EST, as needed for pain, 07/28/24 9:28:00 AM EST, Route to Pharmacy Electronically, [id number], Partial fill upon patient request if the prescription is for a schedule II opioid drug., 163, cm, 07/24/24 9:39:00 EDT, Height, 56.9, kg, 07/28/24 8:45:00 EST, Dry Weight Start Date: 07/28/24 Stop Date: 08/27/24 Status: Ordered Quantity: 30.0 Unit: tablet Repeat number: 1 PROzac 10 mg oral capsule 10 mg, 1, capsule, By Mouth, Daily, Refills 0, Maintenance, 07/24/24 9:52:00 AM EDT, Partial fill upon patient request if the prescription is for a schedule II opioid drug. Start Date: 07/24/24 Status: Ordered Repeat number: 1 Problem List Condition Confirmation Course Effective Dates Status Health St atus Informant Abdominal Pain Confirmed Active Asthma Confirmed Active Diarrhea Confirmed Active GARRY (generalized anxiety disorder) Confirmed Active GERD - Gastro-esophageal reflux disease Confirmed Active Urinary retention with incomplete bladder emptying Confirmed Active Iron deficiency anemia Confirmed Active IBS (irritable bowel syndrome) Confirmed Active Neck pain Confirmed Active Pain in limb Confirmed Active Palpitations Confirmed Active Pelvic mass Confirmed Active Vitamin D deficiency Confirmed Active Social History Social History Type Response Smoking Status Never (less than 100 in lifetime) entered on: 03/23/24 Sex Sex Representation Female (finding) Patient Care team information Care Team Personnel Name: Nicole DIXON , Sandra Torrez Position: Reference Physician Member Role: PCP Address: [address] Telecom: Care Team Related Persons Name: LEI SONG Name: BRUNO SONG Insurance Providers Guarantor name: SUSIE SONG Health Plan Information #: 1 Payer: [facility] Member Number: NA Policy Number: NA Group Number: NA
--- OUTSIDE RECORDS SUMMARY | 2024-09-03 02:57 | XMS_ITS | Continuity of Care Document ---
Author Organization [facility] Address [address] [place] [address], [address] [address]- Care Team Providers Care Marine Specialist Name Role Phone Nicole DIXON, Sandra Torrez Primary Care Physician [place] [facility] [id number] Date(s): 07/28/24 - 08/27/24 [facility] [employer] [address], [address] [place] [id number] Attending Physician: Lianne Snowden Admitting Physician: AdmLianne bragg Referring Physician: Admtr ArCesar Encounter Type: Triage [...] Refills, Maintenance, 07/15/24 12:52:00 PM EDT, Film, [id number], Partial fill upon patient request [...] Maintenance, 06/23/24 6:16:00 PM EDT, [id number], Partial fill upon patient request [...] 0 Refills, Maintenance, 07/28/24 9:27:00 AM EST, [id number], Partial fill upon patient request if the prescription is for a schedule II opioid drug., 163, cm, 07/24/24 9:39:00 EDT, Height, 56.9, kg, 07/28/24 8:45:00 EST, Dry Weight Start Date: 07/28/24 Stop Date: 10/26/24 Status: Ordered Quantity: 270.0 Unit: tablet Repeat number: 1 PROzac 10 [...] on: 03/23/24 Sex Sex Representation Female (finding) Radiology * Event Display: Bone Density Authored Date: * Event Display: MRI Spine, Non- BH Authored Date: * Event Display: MRI Spine, Non- BH Authored Date: Patient Care team information Care Team Personnel Name: Nicole DIXON , Sandra Torrez Position: Reference Physician Member Role: PCP Address: [address] Telecom: Care Team Related Persons Name: LEI SONG Name: BRUNO SONG Insurance Providers Guarantor name: SUSIE SONG Health Plan Information #: 1 Payer: [employer] Member Number: NA Policy Number: NA Group Number: NA
--- OUTSIDE RECORDS SUMMARY | 2024-09-03 02:57 | XMS_ITS | Continuity of Care Document ---
Author Organization [facility] [address], [address] [place] [address]- Care Team Providers Care Turbo Generator Oiler Name Role Phone Nicole DIXON, Sandra Torrez Primary Care Physician Encounter [facility] Date(s): 07/07/24 - 08/06/[address] [place], [place] [address] Encounter Type: Triage Allergies, Adverse Reactions, Alerts [...] 0 Refills, Maintenance, 07/28/24 9:27:00 AM EST, [id number], Partial fill upon patient request if [...] Reference Physician Member Role: PCP Address: [address] [place], [place] [address] Telecom: Care Team Related Persons Name: LEI SONG Name: BRUNO SONG Insurance Providers Guarantor name: SUSIE SONG Health Plan Information #: 1 [facility] Member Number: NA Policy Number: NA Group Number: NA
--- OUTSIDE RECORDS SUMMARY | 2024-09-03 02:57 | XMS_ITS | Continuity of Care Document ---
[facility] Address [address], [address] [place] [address]- Care Team Providers Care Net Programmer Name Role Phone Nicole DIXON, Sandra Torrez Primary Care Physician Encounter [facility] [place] Date(s): 07/23/24 - 08/22/24 [facility] [address], [address] [place], [place] [address] Encounter Type: Triage Allergies, Adverse Reactions, [...] 0 Refills, Maintenance, 07/28/24 9:27:00 AM EST, [facility] #[id number], Partial fill upon patient request if [...] Reference Physician Member Role: PCP Address: [address] [place], [place] [address] Telecom: Care Team Related Persons Name: LEI SONG Name: BRUNO SONG Insurance Providers Guarantor name: SUSIE SONG Health Plan Information #: 1 Payer: [facility] Member Number: NA Policy Number: NA Group Number: NA
--- OUTSIDE RECORDS SUMMARY | 2024-09-03 02:57 | XMS_ITS | Continuity of Care Document ---
[facility] Address [address] [facility], [address] [place] [address]- Care Team Providers Care Sleeve Tailor Name Role Phone Nicole DIXON, Sandra Torrez Primary Care Physician Encounter [facility] Date(s): 07/15/24 - 08/14/24 [facility] [address] [facility], [address] [place], [place] [address] Encounter Type: Triage Allergies, Adverse Reactions, Alerts [...] Refills, Maintenance, 07/28/24 9:27:00 AM EST, [facility] #[id number], Partial fill upon patient request if [...] Reference Physician Member Role: PCP Address: [address] [place], [place] [address] Telecom: Care Team Related Persons Name: LEI SONG Name: BRUNO SONG Insurance Providers Guarantor name: SUSIE SONG Health Plan Information #: 1 Payer: [facility] Member Number: NA Policy Number: NA Group Number: NA
== END 2024-08-28 15:36 | disposition home or self-care (01) ==
PROVIDERS: PCP Internal Medicine; Visit Provider Internal Medicine
DX: Z00.01 Encounter for general adult medical examination with abnormal findings (principal); N80.9 Endometriosis, unspecified; Z86.2 Personal history of diseases of the blood and blood-forming organs and certain disorders involving the immune mechanism; Z86.39 Personal history of other endocrine, nutritional and metabolic disease; F41.1 Generalized anxiety disorder; Z71.89 Other specified counseling

== ENCOUNTER → 2024-08-28 13:55 | Outpatient (BNVA) | payer OTHER, SELFPAY | PROVIDERS: PCP Internal Medicine; Visit Provider Internal Medicine | DX: Z00.01 Encounter for general adult medical examination with abnormal findings (principal); N80.9 Endometriosis, unspecified; F41.1 Generalized anxiety disorder; Z71.89 Other specified counseling; Z86.2 Personal history of diseases of the blood and blood-forming organs and certain disorders involving the immune mechanism; Z86.39 Personal history of other endocrine, nutritional and metabolic disease | CPT/HCPCS: 96127 ==

== ENCOUNTER 2024-11-28 08:42 | Outpatient (REF) | payer OTHER, SELFPAY ==
--- OUTSIDE RECORDS SUMMARY | 2024-11-28 09:18 | XMS_ITS | Clinical Summary ---
Author Organization [facility] Address [address] [place] [address] Care Team Providers Care Derrick Worker Name Role Phone Unavailable Primary Care Provider Unavailabl e Social History Tobacco Use Types Packs/Day Years Used Date Smoking Tobacco: Never Assessed Comments Unknown Sex and Gender Information Value Date Recorded Sex Assigned at Not on file Legal Sex Female 8:48 AM EST Gender Identity Not on file Sexual Orientation Not on file Plan of Treatment Health Maintenance Due Date Last Done Comments HPV Vaccines (1 - 3-dose series) 2013 DTaP,Tdap,and Td Vaccines (1 - Tdap) 2017 Hepatitis B Vaccines (1 of 3 - 19+ 3-dose series) 2017 Cervical Cancer Screening: P ap Smear 2019 COVID-19 Vaccine ( - 2023-2 5 season) 2024 Influenza Vaccine (#1) 2024 Depression Screening 06/03/2024 HIV Screening 06/03/2024 Hepatitis C Screening 06/03/2024 Social Influencers of Health Screening 06/03/2024 HIB Vaccines Aged Out No longer eligi ble based on patient's age to complete this topic Hepatitis A Vaccines Aged Out No long er eligible based on patient's age to complete this topic IPV Vaccines Aged Out No longer eligi ble based on patient's age to complete this topic MMR Vaccines Aged Out No longer eligi ble based on patient's age to complete this topic Meningococcal ACWY Vaccine Aged Out N o longer eligible based on patient's age to complete this topic Meningococcal B Vacine Aged Out No lo nger eligible based on patient's age to complete this topic Pneumococcal Vaccine: Pediat rics (0 to 5 Years) and At-Risk Patients (6 to 64 Years) Aged Out No longer eligible b ased on patient's age to complete this topic RSV Immunization Patients Un deyanira 20 months Aged Out No longer eligible b ased on patient's age to complete this topic Varicella Vaccines Aged Out No longer eligible based on patient's age to complete this topic
--- OUTSIDE RECORDS SUMMARY | 2024-11-28 09:18 | XMS_ITS | Encounter Summary ---
Author Organization [facility] Address [address] [place] [address] Phone Care Team Providers Care Coat Examiner Name Role Phone Lo Avitia NP Primary Care Provider [phone] Encounter Details Date Type Department Care Team (Late st Contact Info) Description 03/30/2011 Conversion Encounter [facility] [address] [place] [address] [place] [address] Social History Tobacco Use Types Packs/Day Years Used Date Smoking Tobacco: Never Assessed Comments Unknown Sex and Gender Information Value Date Recorded Sex Assigned at Not on file Legal Sex Female 6:40 PM EDT Gender Identity Not on file Sexual Orientation Straight 10/09/2019 2: 50 PM EST documented as of this encounter Plan of Treatment Not on file documented as of this encounter Visit Diagnoses Not on filedocumented in this encounter Care Teams Coat Examiner Relationship Specialty Start Date End Date Lo Avitia NP [address] [place] [address] [place] [address] PCP - General Pediatrics 01/07/21 documented as of this encounter
--- OUTSIDE RECORDS SUMMARY | 2024-11-28 09:18 | XMS_ITS | Clinical Summary ---
Author Organization [facility] Address [address] [place] [id number] Phone Care Team Providers Care Dialysis Registered Nurse Name Role Phone Lo Avitia AALIYAH Primary Care Provider [phone] Allergies No known active allergies Medications LORazepam (Ativan) 0.5 MG tabletIndicatio ns:Anxiety Take 1 tablet (0.5 mg total) by mouth 2 (two) times a day. 60 tablet 1 08/18/2020 Active naproxen 500 MG tabletIndicatio ns:Dysmenorrhea Take 1 tablet (500 mg total) by mouth 2 (two) times a day as needed for mild pain or moderate pain (for cramps). 30 tablet 1 10/15/2020 Active hydrOXYzine 50 MG capsuleIndicati ons:Anxiety Take 1 cap po TID prn for Anxiety 90 capsule 02/08/2022 Active Immunizations Immunization Administration Dates Next Due COVID-19 Pfizer, monovalent, 12+ years 2 DTaP 5 03/02/2003, 9,1998,06/11,1998 Hep B, ped/adol 1998,1998,1998 Hib (PRP-T) 05/23/1999, 8,1998,04/16 IPV 03/02/2003, 9,1998,04/16 Influenza, injectable, quadrivalent 07/17/2021,1 Influenza, injectable, quadr ivalent, preservative free 07/05/2019,07/27/2018,07/29/2016 Influenza, injectable,sheree valent, preservative free, pediatric 07/05/2019 MMR 03/02/2003,02/08/1999 Meningococcal Conj (Menactra) MCV4P 02/14/2016,0 04/04/2010 Tdap 10/15/2020,04/04/2010 Varicella 04/04/2010,02/08/1999 Family History Relation Name Status Comments Father Antonio Alive Mother Ruby Alive Social History Tobacco Use Types Packs/Day Years Used Date Smoking Tobacco: Never Comments:Never Smoker Alcohol Use Standard Drinks/Week Comments Not Currently 0 (1 standard drink = 0.6 oz pur e alcohol) Hunger/Food Answer Date Recorded In the last 12 months, did y ou or your family ever eat less than you felt you should because there wasn't enough money for food? No 10/15/2020 Stable Housing Answer Date Recorded Are you worried that in the next 2 months you may not have stable housing? No 10/15/2020 Transportation Concerns Answer Date Rec orded In the last 12 months, have you or your family ever had to go without healthcare because you didn't have a way to get there? No 10/15/2020 Hazards in Home Answer Date Recorded Think about the place you li ve. Do you have problems with any of the following? Pests (mice or roaches), mold, no/not working smoke detectors, water leaks, no window guards. No 2020 Financing Utilities Answer Date Recorde d In the last 12 months, has t he [employer], gas, oil, or water [place] threatened to shut off your services in your home? No 10/15/2020 Safety at Home Answer Date Recorded Are you or your family worried about feeling saf e in your home? No 10/15/2020 Outside Support Answer Date Recorded Do you feel that you need mo re support from other people or programs to help you care for yourself or your family? No 10/15/2020 Understanding Health Concerns Answer Da te Recorded Do you need help understandi ng your or your child's healthcare needs (diagnosis, medications, plan, etc.)? No 10/15/2020 Financing Health Concerns Answer Date R ecorded In the last 12 months, was t here a time when your child needed to see a doctor or get medications or supplies but could not because of cost? No 10/15/2020 Missing School or Work Answer Date Stephen rded Did you or your child miss s chool or work because of a health problem that could have been avoided? No 10/15/2020 Comments Unknown Sex and Gender Information Value Date Recorded Sex Assigned at Not on file Legal Sex Female 6:40 PM EDT Gender Identity Not on file Sexual Orientation Straight 10/09/2019 2: 50 PM EST Last Filed Vital Signs Vital Sign Reading Time Taken Comments Blood Pressure 100/62 10/15/2020 10:14 AM EST Pulse 87 10/15/2020 10:14 AM EST Temperature 36.2 ??C (97.1 ??F) 10/15/2020 10:[address] Respiratory Rate - - Oxygen Saturation - - Inhaled Oxygen Concentration - - Weight 57.2 kg (126 lb 1.6 oz) 10/15/2020 10:14 AM EST Height 160 cm (5' 2.99 ) 10/15/2020 10:14 AM EST Body Mass Index 22.34 10/15/2020 10:14 AM EST Plan of Treatment Health Maintenance Due Date Last Done Comments HPV Vaccines (1 - 3-dose series) 2013 Influenza Vaccines (#1) 2024 07/17/20 21, 07/05/2019, 07/05/2019, Additional history exists COVID-19 Vaccine ( season) 2024 10/19/2021, 02/05/2021, 01/13/2021 DTaP,Tdap,and Td Vaccines (8 - Td or Tdap) 10/15/2030 10/15/2020, 04/04/2010, 03/02/2003, Additional history exists Hepatitis B Vaccines Completed 1998, 1998, 1998 HIB Vaccines Completed 05/23/1999, 07/26, 1998, Additional history exists IPV Vaccines Completed 03/02/2003, 07/26, 1998, Additional history exists MMR Vaccines Completed 03/02/2003, 02/08/1999 Varicella Vaccines Completed 04/04/2010, 02/08/1999 Meningococcal Vaccine Completed 02/14/2016, 010 Hepatitis A Vaccines Aged Out No long er eligible based on patient's age to complete this topic Men B Vaccine Aged Out No longer elig ible based on patient's age to complete this topic Pneumococcal Vaccine Aged Out No long er eligible based on patient's age to complete this topic Procedures * Due to [place] [employer] law, this organization might not be sharing sensitive test results. Procedure Name Priority Date/Time Associated Diagnosis Comments CHLAMYDIA GC AMP PROBE Routine 10/15/2020 10:24 AM EST Well adult exam from Last 3 Months or Most Recently Relevant to Health Maintenance Results * Due to [place] [employer] law, this organization might not be sharing sensitive test results. * CHLAMYDIA GC AMP PROBE (10/15/2020 10:24 AM EST) Chlamydia Trachomatis, Amplified NEGATIVE (NEG) [facility] Comment: No Chlamydia Trachomatis RNA detected in this patient's sample ? (REFERENCE RANGE/NORMAL VALUE: NOT DETECTED) ? Note: This test uses literacy teacher- mediated amplification method to detect rRNA from C. Trachomatis N.GONORRHOEAE AMP PROBE NEGATIVE (NEG) [facility] Comment: No Neisseria Gonorrhoeae RNA detected in this patient's sample ? (REFERENCE RANGE/NORMAL VALUE: NOT DETECTED) ? NOTE: This test uses literacy teacher-mediated amplification method to detect rRNA from N.Gonorrhoeae. A negative result does not preclude infection. In the case of a negative urine result, testing of an endocervical(female) or urethral (male) specimen is recommended if there is high clinical suspicion of infection. Due to very high sensitivity of Nucleic Acid Amplification Test, false positive results may occur. Therefore, specimen handling is extremely important. In patients in whom the disease is unlikely, additional sample for testing should be considered after an initial positive result. The performance characteristics of this test have not been evaluated in children. The Aptima Combo2 assay is not intended for the evaluation of suspected sexual abuse or for other medico-legal indications. The ordering provider should assess if the patient had consensual sex without risk of sexual abuse. Consult the [facility] if needed. Contact phone number . Therapeutic failure or success cannot be determined with the Aptima Combo2 assay since nucleic acid may persist following appropriate antimicrobial therapy. The Centers for Disease Control and Prevention (CDC) recommends confirmatory retesting using culture or a different nucleic acid amplification test when positive results occur, if indicated. CHLAM/GC AMP PROBE SPEC TYPE VAGINAL SPECIMEN [facility] Comment: Testing performed or reported by [facility], a Service of [facility], [facility] [place] [address] Teddy Guerrero MD, Folder Tier Swab (Vagina) 10/15/2020 10: 24 AM EST 10/15/2020 8:47 PM EST Sierra Plata DO LAB MICROBIOLOGY - GENERAL ORDE MARTHA Final Result [facility] from Last 3 Months or Most Recently Relevant to Health Maintenance Insurance [facility] H[facility] [employer] [place] [address] Care Teams Dialysis Registered Nurse Relationship Specialty Start Date End Date Lo Avitia NP [address] [place] [address] PCP - General Pediatrics 01/07/21
[2024-11-28 10:09] LABS: MANUAL DIFF FLAG NO
[2024-11-28 10:19] LABS: Basophils Percent Auto 0.7 % (0-2); Eosinophils Absolute Auto 0.1 X10*3/uL (0.0-0.4); Eosinophils Percent Auto 1.2 % (0-4); Hematocrit 38.3 % (37.0-47.0); Hemoglobin 12.9 g/dl (12.0-16.0); Imm Gran Abs Auto 0.01 X10*3/uL (0.00-0.03); Imm Gran Pct Auto 0.2 % (0.0-0.4); Lymphocytes Absolute Auto 2.6 X10*3/uL (1.2-4.9); Lymphocytes Percent Auto 45.8 % (20-40); Mean Corpuscular HGB Conc 33.7 g/dl (31.0-35.0); Mean Corpuscular Hemoglobin 29.7 pg (27.0-33.0); Mean Corpuscular Volume 88.2 fL (80.0-98.0); Mean Platelet Volume 10.4 fL (9.4-12.3); Monocytes Absolute Auto 0.5 X10*3/uL (0.1-1.2); Monocytes Percent Auto 8.6 % (2-11); Neutrophils Absolute Auto 2.5 x10*3/uL (2.0-8.3); Neutrophils Percent Auto 43.5 % (45-73); Platelet Count 303 X10*3/uL (160-400); Red Blood Count 4.34 X10*6/uL (4.20-5.50); Red Cell Distribution Width 13.4 % (11.0-16.0); White Blood Count 5.7 X10*3/uL (4.8-10.8)
[2024-11-28 10:49] LABS: Anion Gap 10 (12-20); Blood Urea Nitrogen 9 mg/dL (9-16); Calcium 9.7 mg/dL (8.4-10.2); Carbon Dioxide 29 mmol/L (22-29); Chloride 103 mmol/L (96-108); Cholesterol 187 mg/dL (<200); Estimated Glomerular Filt Rate > 60; Glucose Fasting 80 mg/dL (60-99); HDL Cholesterol 56 mg/dL (>40); LDL Cholesterol Calculated 117 mg/dL (<100); Potassium 4.1 mmol/L (3.3-5.1); Sodium 138 mmol/L (135-145); TSH reflex Free T4 1.68 uIU/mL (0.32-4.0); Triglycerides 73 mg/dL (<150); Vitamin D 25-OH Total 82.2 ng/mL (>30)
== END 2024-11-28 08:43 | disposition home or self-care (01) ==
LOC: HO.HMGCLDS 08:42
PROVIDERS: PCP Internal Medicine; Visit Provider Internal Medicine
DX: Z00.01 Encounter for general adult medical examination with abnormal findings (principal); Z71.89 Other specified counseling; N80.9 Endometriosis, unspecified; F41.1 Generalized anxiety disorder; Z86.39 Personal history of other endocrine, nutritional and metabolic disease; Z86.2 Personal history of diseases of the blood and blood-forming organs and certain disorders involving the immune mechanism; Z13.6 Encounter for screening for cardiovascular disorders
CPT/HCPCS: 36415; 80048; 80061; 82306; 84443; 85025